=== PATIENT | female | born 1965 | race Caucasian/White ===

== ENCOUNTER 2018-11-01 21:56 | Observation (INO) | payer OTHER ==
[2018-11-01] MEDS ORDERED: METOPROLOL TARTRATE 5 MG/5 ML VIAL IV ONE (22:02)
[2018-11-01] MEDS ORDERED: 0.9 % SODIUM CHLORIDE 1,000 ML IV ONE ×2 (22:06→23:06)
[2018-11-01] MEDS ORDERED: THIAMINE HCL 200 MG/2 ML VIAL IV ONE (22:07)
[2018-11-01] MEDS ORDERED: FOLIC ACID 5 MG/1 ML IV ONE (22:07)
[2018-11-01] MEDS ORDERED: MULTIVIT INFUSN,ADULT 1,VIT K 10 ML VIAL IV ONE ×2 (22:12→22:21)
--- NOTE | 2018-11-01 22:13 | ED Physician Documentation ---
General Adult - HISTORIAN Historian: patient - HPI Stated Complaint: alcohol problem Chief Complaint: General Adult Additional Information: Patient presents to ED via EMS after being assessed at [facility]. She was found to be intoxicated and tachycardic. Patient was transferred to ED via ambulance. Patient reports drinking 1/5 to one gallon of Vodka daily. She denies ever having any seizures from withdrawal or being hospitalized for alcohol [place]. Patient states she has not eaten any food or taken any of her medications in 10 days. She takes gabapentin, Metoprolol, lisinopril, spironolactone, albuterol Onset: days ago (10) Timing: still present Severity: severe - ROS CONST: denies: fever EYES/ENT: denies: problems with vision CVS/RESP: denies: chest pain, shortness of breath GI/: denies: vomiting, nausea MS/SKIN/LYMPH: none NEURO/PSYCH: denies: headache - PAST HX Past History: asthma Other History: none Surgeries/Procedures: none Allergies/Adverse Reactions: Allergies Allergy/AdvReac Type Severity Reaction Status Date / Time morphine Allergy Hives Verified 11/01/18 22:46 Sulfa (Sulfonamide Allergy Hives Verified 11/01/18 22:46 Antibiotics) Home Medications: Ambulatory Orders Medication Instructions Recorded Albuterol Sulfate [Proair HFA] 2 puff IN PRN PRN 11/01/18 Beclomethasone Dipropionate [Qvar 1 puff INH DAILY 11/01/18 Redihaler] Cetirizine HCl [Zyrtec] 1 tab PO DAILY 11/01/18 Cyclobenzaprine HCl [Flexeril] 10 mg PO TID PRN 11/01/18 Gabapentin [Neurontin] 3 tab PO TID 11/01/18 Hydroxyzine HCl [Atarax] 1 tab PO BID PRN 11/01/18 LORazepam [Ativan] 1 tab PO BID PRN 11/01/18 Lisinopril/Hydrochlorothiazide 1 tab PO DAILY 11/01/18 [Zestoretic] Metoprolol Tartrate 2 tab PO DAILY 11/01/18 Montelukast Sodium [Singulair] 1 tab PO DAILY 11/01/18 Ondansetron HCl Rapdis [Zofran ODT] 1 tab SL Q4H PRN 11/01/18 Spironolactone [Aldactone] 1 tab PO DAILY 11/01/18 amLODIPine BESYLATE [Norvasc] 1 tab PO DAILY 11/01/18 - SOCIAL HX Smoking History: non-smoker Alcohol Use: none Drug Use: none - FAMILY HX Family History: No - REVIEWED ASSESSMENTS Nursing Assessment Reviewed: Yes Vitals Reviewed: Yes Progress - Results/Orders Results/Orders: 0320 Patient still having some nausea. Repeat troponin is 0.058. Patient denies chest pain or shortness of breath. Will give another liter of IVF and Zofran. ARMANDO 0.289 0530 Patient still nauseated. NO chest pain. HR 116. Will start home med of metoprolol. Promethazine IM. Admission for observation to [facility]. - Progress Progress: 2224 Patient reports being sober for ten years and "falling off the wagon" about 10 days ago. She was admitted to [facility] 5 days ago for intoxication and low oxygen saturation. PE was ruled out. 2314 Patient complains of nausea refractory to Zofran. Will give Zyprexa - EKG/XRAY/CT EKG: nonspecific ST T wave chg Comments: sinus tachycardia 133 bpm - Additional EKG/XRAY/Consults EKG #2: unchanged from (2203) Comments: Sinus tachycardia 114bpm ED Results Lab/Radiology - Lab Results Lab Results: UA - negative for infection. +1 ketones, +1 blood UDS - positive for Benzos - Orders Orders: ED Orders Category Date Time Status CBC/PLATELET/DIFF Routine Lab 11/01/18 Ordered CMP Routine Lab 11/01/18 Ordered TROPONIN I Stat Lab 11/01/18 Ordered UA W/MICRO IF INDICATED Routine Lab 11/01/18 22:02 Ordered UDS [DRUG SCREEN URINE MEDICAL ONLY] Routine Lab 11/01/18 Ordered Folic Acid [Folvite] Med 11/01/18 22:07 Once 5 mg IV NOW ONE Metoprolol Tartrate [Lopressor] Med 11/01/18 22:02 Once 5 mg IV NOW ONE NORMAL SALINE @ 1000 MLS/HR ( 1000ml BOLUS) Med 11/01/18 22:06 Ordered 0.9 % Sodium Chloride [Normal Saline] 1,000 ml IV Q1H Thiamine HCl [Vitamin B-1] Med 11/01/18 22:07 Once 200 mg IV NOW ONE EKG WITH COMPARISON Stat Ther 11/01/18 Ordered General Adult Physical Exam - PHYSICAL EXAM GENERAL APPEARANCE: no distress EENT: TIM NECK: supple RESPIRATORY: no resp distress, breath sounds normal CVS: no murmur, tachycardia ABDOMEN: soft, normal bowel sounds BACK: no CVA tenderness SKIN: warm/dry EXTREMITIES: non-tender, no evidence of injury, no edema NEURO: oriented X3, CN's nml as tested, motor nml, mood/affect nml Discharge Clincal Impression: Tachycardia, Elevated troponin Alcohol intoxication Qualifiers: Complication of substance-induced condition: uncomplicated Qualified Code(s): F10.920 - Alcohol use, unspecified with intoxication, uncomplicated Comments: Disposition: Admit to floor as Observation, to [facility], control nausea and work on tachycardia. Condition: Stable Decision to Admit: NO Date of Decison to Admit: 11/02/18 Decision Time: 05:46
[2018-11-01 22:22] LABS: BASOPHILS % 1.7 % (0.0-1.5); EOSINOPHILS % 1.8 % (0.0-6.8); MEAN CORPUSCULAR HEMOGLOBIN 31.9 pg (28.0-34.0); MONOCYTES % 6.4 % (0.0-11.0); NEUTROPHILS # 4.9 # k/uL (1.4-7.7)
[2018-11-01 22:35] LABS: eGFR (Non-African) > 60
[2018-11-01] MEDS ORDERED: ONDANSETRON HCL/PF 4 MG/ 2ML VIAL IVP ONE (22:50)
[2018-11-02] MEDS ORDERED: NORMAL SALINE 1,000 ML IV.SOLN IV STA (03:38)
[2018-11-02] MEDS ORDERED: PROMETHAZINE HCL 25 MG/ML VIAL IM ONE (05:29)
[2018-11-02] MEDS ORDERED: METOPROLOL SUCCINATE 50 MG TAB.ER.24H PO ONE (05:33)
[2018-11-02] MEDS ORDERED: 0.9 % SODIUM CHLORIDE 1,000 ML IV ONE (05:41)
[2018-11-02] MEDS ORDERED: LEVALBUTEROL NEB 1.25 MG/3 ML VIAL.NEB IH PRN (06:07)
[2018-11-02] MEDS ORDERED: PROMETHAZINE HCL 25 MG TABLET PO PRN (06:13)
[2018-11-02] MEDS ORDERED: ONDANSETRON HCL/PF 4 MG/ 2ML VIAL IVP PRN (06:13)
[2018-11-02] MEDS: LORazepam 2 MG/ML VIAL IV PRN ×4 (06:39→18:38)
[2018-11-02] MEDS: DEXTROSE 5 %-0.45 % SOD CHLORD 1,000 ML IV SCH ×2 (06:48→16:07)
[2018-11-02] MEDS: ENOXAPARIN SODIUM 40 MG/0.4 ML DISP.SYRIN SQ SCH ×2 (06:48→09:23)
[2018-11-02 08:45] VITALS: BMI 26.6
[2018-11-02] MEDS ORDERED: GABAPENTIN 300 MG CAPSULE PO SCH (09:00)
[2018-11-02] MEDS: LISINOPRIL 10 MG TABLET PO SCH (09:21)
[2018-11-02] MEDS: MONTELUKAST SODIUM 10 MG TABLET PO SCH (12:23)
[2018-11-02 12:47] LABS: CANNABINOIDS NEGATIVE ng/mL (< 50); METHYLENEDIOXYMETHAMPHETAMINE NEGATIVE ng/mL (<500)
[2018-11-02 12:49] LABS: APPEARANCE,URINE CLEAR (CLEAR); COLOR,URINE YELLOW (YELLOW); OCCULT BLOOD,URINE 1+ (NEGATIVE); UROBILINOGEN URINE 0.2 Eu (0.2-1.0)
[2018-11-02] MEDS: METOPROLOL SUCCINATE 50 MG TAB.ER.24H PO SCH (20:14)
[2018-11-03] MEDS: DEXTROSE 5 %-0.45 % SOD CHLORD 1,000 ML IV SCH (02:39)
--- NOTE | 2018-11-03 07:42 | Discharge Summary ---
Discharge Summary - Discharge [facility] Admission Date: 11/02/18 Discharge Date: 11/03/18 History of Present Illness: Patient presents to ED via EMS after being assessed at [facility]. She was found to be intoxicated and tachycardic. Patient was transferred to ED via ambulance. Patient reports drinking 1/5 to one gallon of Vodka daily. She denies ever having any seizures from withdrawal or being hospitalized for alcohol [facility]. Patient states she has not eaten any food or taken any of her medications in 10 days. She takes gabapentin, Metoprolol, lisinopril, spironolactone, albuterol Condition at Discharge: Stable Home Medications: Ambulatory Orders Medication Instructions Recorded Albuterol Sulfate [Proair HFA] 2 puff IN PRN PRN 11/01/18 Beclomethasone Dipropionate [Qvar 1 puff INH DAILY 11/01/18 Redihaler] Cetirizine HCl [Zyrtec] 1 tab PO DAILY 11/01/18 Cyclobenzaprine HCl [Flexeril] 10 mg PO TID PRN 11/01/18 Gabapentin [Neurontin] 3 tab PO TID 11/01/18 Hydroxyzine HCl [Atarax] 1 tab PO BID PRN 11/01/18 LORazepam [Ativan] 1 tab PO BID PRN 11/01/18 Lisinopril/Hydrochlorothiazide 1 tab PO DAILY 11/01/18 [Zestoretic] Metoprolol Tartrate 2 tab PO DAILY 11/01/18 Montelukast Sodium [Singulair] 1 tab PO DAILY 11/01/18 Ondansetron HCl Rapdis [Zofran ODT] 1 tab SL Q4H PRN 11/01/18 Spironolactone [Aldactone] 1 tab PO DAILY 11/01/18 amLODIPine BESYLATE [Norvasc] 1 tab PO DAILY 11/01/18 Consultations this Visit: None Procedures this Visit: None Allergies/Adverse Reactions: Allergies Allergy/AdvReac Type Severity Reaction Status Date / Time morphine Allergy Hives Verified 11/01/18 22:46 Sulfa (Sulfonamide Allergy Hives Verified 11/01/18 22:46 Antibiotics) Patient Problems: Current Active Problems Problem Status Onset Alcohol intoxication Acute Elevated troponin Acute Tachycardia Acute Discharge Summary: Patient presents to ED via EMS after being assessed at [facility]. She was found to be intoxicated and tachycardic. Patient was transferred to ED via ambulance. Patient reports drinking 1/5 to one gallon of Vodka daily. She denies ever having any seizures from withdrawal or [facility] Patient states she has not eaten any food or taken any of her medications in 10 days. She takes gabapentin, Metoprolol, lisinopril, spironolactone, albuterol. Despite aggressive IVF hydration in the ED she remained tachycardic with a ARMANDO of 0.289. She was admitted as observation, given more IVF and her home medications of Metoprolol, Lisinopril and gabapentin were restarted. Anxiety was treated with Ativan and Zyprexa. She had considerable amount of nausea also, which was treated with Zofran, pormethazine and Zyprexa. Heart rate and blood pressure improved with resolution of nausea. She was deemed stable for discharge. Patient will take a private vehicle to [facility] rehab.
[2018-11-03] MEDS: LORazepam 2 MG/ML VIAL IV PRN (07:59)
[2018-11-03] MEDS: ENOXAPARIN SODIUM 40 MG/0.4 ML DISP.SYRIN SQ SCH (08:00)
[2018-11-03] MEDS: LISINOPRIL 10 MG TABLET PO SCH (08:00)
[2018-11-03] MEDS: METOPROLOL SUCCINATE 50 MG TAB.ER.24H PO SCH (08:00)
[2018-11-03] MEDS: MONTELUKAST SODIUM 10 MG TABLET PO SCH (08:00)
[2018-11-03 08:48] VITALS: BP 142/97
== END 2018-11-03 09:05 | disposition home or self-care (01) ==
LOC: ED 21:56 → SOUTH 11-02 05:59
PROVIDERS: ADMIT Physician Assistant Medical; ATTEND Physician Assistant Medical
DX: F10.920 Alcohol use, unspecified with intoxication, uncomplicated (principal); R00.0 Tachycardia, unspecified; R11.2 Nausea with vomiting, unspecified; Y90.5 Blood alcohol level of 100-119 mg/100 ml
CPT/HCPCS: 80053; 80320; 80377; 81002; 84484; 85025; 93005; 96365; 96366; 96375; 96376; 99284; 99285; G0378; J1650; J2060; J2405; J2550; J3411; J3490; J7030; 99217; G0480; G0481; S5010

== ENCOUNTER 2018-12-10 20:50 | Emergency (ER) | payer OTHER ==
[2018-12-10] MEDS ORDERED: MULTIVIT INFUSN,ADULT 1,VIT K 10 ML VIAL IV ONE (21:03)
[2018-12-10] MEDS ORDERED: THIAMINE HCL 200 MG/2 ML VIAL IV ONE (21:03)
[2018-12-10] MEDS ORDERED: FOLIC ACID 5 MG/1 ML IV ONE (21:03)
[2018-12-10] MEDS ORDERED: 0.9 % SODIUM CHLORIDE 1,000 ML IV ONE (21:03)
--- NOTE | 2018-12-10 21:03 | ED Physician Documentation ---
General Adult - HISTORIAN Historian: patient - HPI Stated Complaint: intoxication, nausea/vomiting Chief Complaint: General Adult Additional Information: Patient presents to ED from [facility] intoxicated with nausea/vomiting. Tori fagan was seen and treated at [facility] for alcohol detox last month. She enjoyed 2 weeks of sobriety and started drinking again. On Thursday she was intoxicated, fell, broke her nose and was evaluated in [place]. She has a follow up appointment with ENT on Thursday. Patient seeking alcohol treatment went to [facility] today, however, was sent here for treatment of nausea/vomiting. Onset: hours (12) Timing: still present Severity: moderate - ROS CONST: no problems EYES/ENT: none CVS/RESP: none GI/: none MS/SKIN/LYMPH: none NEURO/PSYCH: headache - PAST HX Past History: COPD, hypertension, other (alcoholism) Other History: none Surgeries/Procedures: none Allergies/Adverse Reactions: Allergies Allergy/AdvReac Type Severity Reaction Status Date / Time morphine Allergy Hives Verified 12/10/18 21:09 Sulfa (Sulfonamide Allergy Hives Verified 12/10/18 21:09 Antibiotics) Home Medications: Ambulatory Orders Medication Instructions Recorded Albuterol Sulfate [Proair HFA] 2 puff IN PRN PRN 11/01/18 Beclomethasone Dipropionate [Qvar 1 puff INH DAILY 11/01/18 Redihaler] Cetirizine HCl [Zyrtec] 1 tab PO DAILY 11/01/18 Cyclobenzaprine HCl [Flexeril] 10 mg PO TID PRN 11/01/18 Gabapentin [Neurontin] 3 tab PO TID 11/01/18 LORazepam [Ativan] 1 tab PO BID PRN 11/01/18 Lisinopril/Hydrochlorothiazide 1 tab PO DAILY 11/01/18 [Zestoretic] Metoprolol Tartrate 2 tab PO DAILY 11/01/18 Montelukast Sodium [Singulair] 1 tab PO DAILY 11/01/18 Ondansetron HCl Rapdis [Zofran ODT] 1 tab SL Q4H PRN 11/01/18 Spironolactone [Aldactone] 1 tab PO DAILY 11/01/18 amLODIPine BESYLATE [Norvasc] 1 tab PO DAILY 11/01/18 hydrOXYzine HCL [Atarax] 1 tab PO BID PRN 11/01/18 - SOCIAL HX Smoking History: non-smoker Alcohol Use: none Drug Use: none - FAMILY HX Family History: Yes - VITAL SIGNS Vital Signs: Vital Signs Temp Pulse Resp BP Pulse Ox 142/97 11/03/18 09:05 - REVIEWED ASSESSMENTS Nursing Assessment Reviewed: Yes Vitals Reviewed: Yes Progress - Progress Progress: 2355 Patient is resting comfortable. No nausea or vomiting for past 2 hours. HR is 94 bpm. General Adult Physical Exam - PHYSICAL EXAM GENERAL APPEARANCE: no distress EENT: TIM NECK: normal inspection, supple RESPIRATORY: no resp distress, chest non-tender, breath sounds normal CVS: reg rate & rhythm, heart sounds normal ABDOMEN: soft, normal bowel sounds BACK: normal inspection, no CVA tenderness SKIN: warm/dry, normal color EXTREMITIES: non-tender, normal range of motion, no evidence of injury NEURO: oriented X3, motor nml Discharge Clincal Impression: Alcohol intoxication Qualifiers: Complication of substance-induced condition: uncomplicated Qualified Code(s): F10.920 - Alcohol use, unspecified with intoxication, uncomplicated Referrals: Primary Doctor,No [REFERRING] - 2 Days Additional Instructions: 1. Drink plenty of fluid to maintain proper hydration. Avoid alcohol 2. Follow up with ENT as previously scheduled for Thursday 3. Go to [facility] 4. Follow up with PCP within 1 week 5. Return to ER for new or worsening symptoms. Condition: Stable Disposition: 01 HOME, SELF-CARE Decision to Admit: NO Date of Decison to Admit: 12/10/18 Decision Time: 23:58
[2018-12-10] MEDS ORDERED: PROMETHAZINE HCL 25 MG in 0.9 % SODIUM CHLORIDE 50 ML IV ONE (21:10)
[2018-12-10] MEDS ORDERED: IBUPROFEN 400 MG TABLET PO ONE (21:28)
[2018-12-10 21:37] LABS: MEAN CORPUSCULAR HEMOGLOBIN 32.7 pg (28.0-34.0)
[2018-12-10 21:49] LABS: HYPERSEGMENTED NEUTROPHILS 1; MONOCYTES % 2 % (0-11); SEGMENTED NEUTROPHILS % 91 % (39-79)
[2018-12-10 21:50] LABS: eGFR (Non-African) > 60
[2018-12-11] MEDS ORDERED: ONDANSETRON HCL/PF 4 MG/ 2ML VIAL ONE (00:28)
[2018-12-11] MEDS ORDERED: ONDANSETRON HCL/PF 4 MG/ 2ML VIAL IVP ONE (00:42)
[2018-12-11 01:14] VITALS: BP 132/86
== END 2018-12-11 00:37 | disposition home or self-care (01) ==
LOC: ED 20:50
DX: F10.920 Alcohol use, unspecified with intoxication, uncomplicated (principal); Y90.6 Blood alcohol level of 120-199 mg/100 ml
CPT/HCPCS: 36415; 80053; 80320; 85025; 96374; 96375; 99283; 99284; J2405; J2550; J3411; J3490; J7030; G0480; S1016

== ENCOUNTER 2018-12-11 13:37 | Outpatient (CLI) | payer OTHER ==
[2018-12-11 01:14] VITALS: BP 132/86
[2018-12-11 13:45] LABS: APPEARANCE,URINE CLEAR (CLEAR); COLOR,URINE YELLOW (YELLOW)
[2018-12-11 13:46] LABS: OCCULT BLOOD,URINE TRACE-INTACT (NEGATIVE); UROBILINOGEN URINE 0.2 Eu (0.2-1.0)
== END 2018-12-11 13:40 ==
LOC: LAB 13:37
PROVIDERS: ATTEND Family Medicine
DX: N39.0 Urinary tract infection, site not specified (principal)
CPT/HCPCS: 81002